=== PATIENT | female | born 1980 | race African-American/Black ===

== ENCOUNTER 2017-12-09 16:14 | Emergency (ER) | payer BC ==
[2017-12-09] MEDS ORDERED: Ondansetron 4 MG/2 ML SDV IVPUSH ONE (16:17)
[2017-12-09] MEDS ORDERED: Sodium Chloride 0.9% 1,000 ML IV ONE (16:17)
--- NOTE | 2017-12-09 16:20 | EDM.PDOC ---
ED HPI GENERAL MEDICAL PROBLEM - General Stated Complaint: STROKE Time Seen by Provider: 12/09/17 16:19 Source of Information: Reports: Patient - History of Present Illness INITIAL COMMENTS - FREE TEXT/NARRATIVE: HISTORY AND PHYSICAL: History of present illness: [Patient arrives via EMS She was working at [employer] today and found by employees to have light left- sided weakness unable to speak, no information concerning past medical history is able to be obtained for medications Patient is awake high as her open she does make some incomprehensible sounds and expressions with the right side of her face however the entire left side face upper extremity and lower extremity is flaccid Patient has had several episodes of vomiting while in the ambulance unit Unable to obtain review of systems chronic medications chronic illness or disease ] Review of systems: As per history of present illness and below otherwise all systems reviewed and negative. Past medical history: As per history of present illness and as reviewed below otherwise noncontributory. Surgical history: As per history of present illness and as reviewed below otherwise noncontributory. Social history: No reported history of drug or alcohol abuse. Family history: As per history of present illness and as reviewed below otherwise noncontributory. Physical exam: HEENT: Atraumatic, normocephalic, pupils reactive, negative for conjunctival pallor or scleral icterus, mucous membranes moist, throat clear, neck supple, nontender, trachea midline. Lungs: Clear to auscultation, breath sounds equal bilaterally, chest nontender. Heart: S1S2, regular, negative for clicks, rubs, or JVD. Abdomen: Soft, nondistended, nontender. Negative for masses or hepatosplenomegaly. Negative for costovertebral tenderness. Pelvis: Stable nontender. Genitourinary: Deferred. Rectal: Deferred. Extremities: Atraumatic, negative for cords or calf pain. Neurovascular unremarkable. Neuro: Awake, flaccid paralysis left upper and lower extremity left facial weakness aphasic Diagnostics: [CBC CMP troponin INR UA drug screen TSH EKG Chest [address] no contrast ] Therapeutics: [1 L normal saline bolus Zofran 8 mg IV TPA 9 mg IV bolus, 0.9/kg over 60 minutes: bolus provided at 1749 hrs. with trip to follow over 1 hour ] Patient had to be intubated for flight due to pulling at lines with her right hand Dr. Cui in the emergency room's excepting physician Did discuss with Dr. Pozo neurology on-call and inquire about TPA does agree with providing the TPA, ideally he would have wanted us to do a CTA and rule out arterial clot formation after TPA administration however our radiologist was gone for the day I felt transfer to ER [facility] would be better suited for getting the CTA and continued management redirecting thereafter per stroke protocol Impression: [Left sided weakness upper and lower extremity] TPA administration Intubation required for air transport and patient safety Definitive disposition and diagnosis as appropriate pending reevaluation and review of above. - Related Data Allergies Allergy/AdvReac Type Severity Reaction Status Date / Time Unable to Assess Allergy Unverified 12/09/17 16:51 Home Meds: Home Meds . [Unable to Verify Home Med List] 12/09/17 [History] ED ROS GENERAL - Review of Systems Review Of Systems: ROS reveals no pertinent complaints other than HPI. ED EXAM, GENERAL - Physical Exam Exam: See Below Course - Vital Signs Last Recorded V/S: Last Vital Signs Temp 96.3 F 12/09/17 16:14 Pulse 74 12/09/17 16:14 Resp 20 12/09/17 16:14 BP 150/122 H 12/09/17 16:14 Pulse Ox 100 12/09/17 16:14 - Orders/Labs/Meds Orders: Active Orders 24 hr Category Date Time Status EKG Documentation Completion [RC] STAT Care 12/09/17 16:17 Active Chest 1V Frontal [CR] Stat Exams 12/09/17 16:17 Taken UA W/MICROSCOPIC [URIN] Stat Lab 12/09/17 17:00 Results Alteplase [Activase] 81 mg Med 12/09/17 17:15 Active Premix Bag 1 bag IV .INFUSION Sodium Chloride 0.9% [Normal Saline] 1,000 ml Med 12/09/17 17:15 Active IV STAT Medication Orders Alteplase, Recombinant 81 mg/ (Premix) 0 mls @ 0 mls/hr IV .INFUSION MAGDI Sodium Chloride (Normal Saline) 1,000 mls @ 125 mls/hr IV STAT MAGDI Labs: Laboratory Tests 12/09/17 12/09/17 12/09/17 Range/Units 16:13 16:13 16:13 WBC 8.86 (4.0-11.0) K/uL RBC 5.12 (4.30-5.90) M/uL Hgb 14.4 (12.0-16.0) g/dL Hct 43.1 (36.0-46.0) % MCV 84.2 (80.0-98.0) fL MCH 28.1 (27.0-32.0) pg MCHC 33.4 (31.0-37.0) g/dL RDW Std Deviation 40.7 (28.0-62.0) fl RDW Coeff of Samantha 13 (11.0-15.0) % Plt Count 202 (150-400) K/uL MPV 10.60 (7.40-12.00) fL Neut % (Auto) 24.8 L (48.0-80.0) % Lymph % (Auto) 63.5 H (16.0-40.0) % [place] % (Auto) 8.5 (0.0-15.0) % Eos % (Auto) 2.7 (0.0-7.0) % Baso % (Auto) 0.5 (0.0-1.5) % Neut # (Auto) 2.2 (1.4-5.7) K/uL Lymph # (Auto) 5.6 H (0.6-2.4) K/uL [place] # (Auto) 0.8 (0.0-0.8) K/uL Eos # (Auto) 0.2 (0.0-0.7) K/uL Baso # (Auto) 0.0 (0.0-0.1) K/uL Nucleated RBC % 0.0 /100WBC Nucleated RBCs # 0 K/uL INR 0.97 Sodium 139 (136-146) mmol/L Potassium 2.9 L (3.5-5.1) mmol/L Chloride 104 (98-110) mmol/L Carbon Dioxide 24 (21-31) mmol/L BUN 9 (6.0-23.0) mg/dL Creatinine 1.0 (0.6-1.5) mg/dL Est Cr Clr Drug Dosing 55.86 mL/min Estimated GFR (MDRD) > 60.0 ml/min Glucose 124 H (60-110) mg/dL Calcium 9.3 (8.8-10.8) mg/dL Total Bilirubin 0.3 (0.1-1.5) mg/dL AST 17 (5-40) IU/L ALT 20 (8-54) IU/L Alkaline Phosphatase 63 (40-150) Creatine Kinase 186 (9-236) IU/L CK-MB (CK-2) 2.2 (0-6.6) ng/ml Troponin I < 0.10 (0.0-0.29) NG/ML Total Protein 7.5 (6.0-8.0) g/dL Albumin 3.9 (3.5-5.0) g/dL Globulin 3.6 H (2.0-3.5) g/dL Albumin/Globulin Ratio 1.1 L (1.3-2.8) TSH 3rd Generation 2.94 (0.47-5.0) uIU/mL Urine Color Urine Appearance Urine pH (5.0-8.0) Ur Specific [place] (1.001-1.035) Urine Protein (NEGATIVE) mg/dL Urine Glucose (UA) (NEGATIVE) mg/dL Urine Ketones (NEGATIVE) mg/dL Urine Occult Blood (NEGATIVE) Urine Nitrite (NEGATIVE) Urine Bilirubin (NEGATIVE) Urine Urobilinogen (<2.0) EU/dL Ur Leukocyte Esterase (NEGATIVE) Urine HCG, Qual (NEGATIVE) Urine Opiates Screen (NEGATIVE) Ur Oxycodone Screen (NEGATIVE) Urine Methadone Screen (NEGATIVE) Ur Barbiturates Screen (NEGATIVE) Ur Phencyclidine Scrn (NEGATIVE) Ur Amphetamine Screen (NEGATIVE) U Methamphetamines Scrn (NEGATIVE) U Benzodiazepines Scrn (NEGATIVE) U Cocaine Metab Screen (NEGATIVE) U Marijuana (THC) Screen (NEGATIVE) 12/09/17 12/09/17 12/09/17 Range/Units 17:00 17:00 17:00 WBC (4.0-11.0) K/uL RBC (4.30-5.90) M/uL Hgb (12.0-16.0) g/dL Hct (36.0-46.0) % MCV (80.0-98.0) fL MCH (27.0-32.0) pg MCHC (31.0-37.0) g/dL RDW Std Deviation (28.0-62.0) fl RDW Coeff of Samantha (11.0-15.0) % Plt Count (150-400) K/uL MPV (7.40-12.00) fL Neut % (Auto) (48.0-80.0) % Lymph % (Auto) (16.0-40.0) % [place] % (Auto) (0.0-15.0) % Eos % (Auto) (0.0-7.0) % Baso % (Auto) (0.0-1.5) % Neut # (Auto) (1.4-5.7) K/uL Lymph # (Auto) (0.6-2.4) K/uL [place] # (Auto) (0.0-0.8) K/uL Eos # (Auto) (0.0-0.7) K/uL Baso # (Auto) (0.0-0.1) K/uL Nucleated RBC % /100WBC Nucleated RBCs # K/uL INR Sodium (136-146) mmol/L Potassium (3.5-5.1) mmol/L Chloride (98-110) mmol/L Carbon Dioxide (21-31) mmol/L BUN (6.0-23.0) mg/dL Creatinine (0.6-1.5) mg/dL Est Cr Clr Drug Dosing mL/min Estimated GFR (MDRD) ml/min Glucose (60-110) mg/dL Calcium (8.8-10.8) mg/dL Total Bilirubin (0.1-1.5) mg/dL AST (5-40) IU/L ALT (8-54) IU/L Alkaline Phosphatase (40-150) Creatine Kinase (9-236) IU/L CK-MB (CK-2) (0-6.6) ng/ml Troponin I (0.0-0.29) NG/ML Total Protein (6.0-8.0) g/dL Albumin (3.5-5.0) g/dL Globulin (2.0-3.5) g/dL Albumin/Globulin Ratio (1.3-2.8) TSH 3rd Generation (0.47-5.0) uIU/mL Urine Color YELLOW Urine Appearance CLEAR Urine pH 7.0 (5.0-8.0) Ur Specific [place] 1.020 (1.001-1.035) Urine Protein 100 (NEGATIVE) mg/dL Urine Glucose (UA) NEGATIVE (NEGATIVE) mg/dL Urine Ketones NEGATIVE (NEGATIVE) mg/dL Urine Occult Blood NEGATIVE (NEGATIVE) Urine Nitrite NEGATIVE (NEGATIVE) Urine Bilirubin NEGATIVE (NEGATIVE) Urine Urobilinogen 0.2 (<2.0) EU/dL Ur Leukocyte Esterase NEGATIVE (NEGATIVE) Urine HCG, Qual NEGATIVE (NEGATIVE) Urine Opiates Screen NEGATIVE (NEGATIVE) Ur Oxycodone Screen NEGATIVE (NEGATIVE) Urine Methadone Screen NEGATIVE (NEGATIVE) Ur Barbiturates Screen NEGATIVE (NEGATIVE) Ur Phencyclidine Scrn NEGATIVE (NEGATIVE) Ur Amphetamine Screen NEGATIVE (NEGATIVE) U Methamphetamines Scrn NEGATIVE (NEGATIVE) U Benzodiazepines Scrn NEGATIVE (NEGATIVE) U Cocaine Metab Screen NEGATIVE (NEGATIVE) U Marijuana (THC) Screen NEGATIVE (NEGATIVE) Meds: Medications Generic Name Dose Route Start Last Admin Trade Name Freq PRN Reason Stop Dose Admin Alteplase, Recombinant 81 mg/ 0 mls @ 0 mls/hr 12/09/17 17:15 Premix IV .INFUSION MAGDI Sodium Chloride 1,000 mls @ 125 mls/hr 12/09/17 17:15 Normal Saline IV STAT MAGDI Discontinued Medications Generic Name Dose Route Start Last Admin Trade Name Freq PRN Reason Stop Dose Admin Alteplase, Recombinant Confirm 12/09/17 17:05 12/09/17 17:44 Activase Administered 12/09/17 17:06 Not Given Dose 100 mg .ROUTE .STK-MED ONE Sodium Chloride 1,000 mls @ 999 mls/hr 12/09/17 16:17 12/09/17 16:45 Normal Saline IV 12/09/17 17:17 999 mls/hr STAT ONE Administration Ondansetron HCl 8 mg 12/09/17 16:17 12/09/17 16:45 Zofran IVPUSH 12/09/17 16:18 8 mg ONETIME ONE Administration Departure - Departure Time of Disposition: 17:51 Disposition: DC/Tfer to Other 70 Condition: Poor Clinical Impression: Limb weakness, Aphasia - Discharge Information Referrals: PCP,None [Primary Care Provider] - - My Orders Last 24 Hours: My Active Orders 12/09/17 16:17 EKG Documentation Completion [RC] STAT Chest 1V Frontal [CR] Stat 12/09/17 17:00 UA W/MICROSCOPIC [URIN] Stat 12/09/17 17:15 Alteplase [Activase] 81 mg Premix Bag 1 bag IV .INFUSION Sodium Chloride 0.9% [Normal Saline] 1,000 ml IV STAT - Assessment/Plan Last 24 Hours: My Active Orders 12/09/17 16:17 EKG Documentation Completion [RC] STAT Chest 1V Frontal [CR] Stat 12/09/17 17:00 UA W/MICROSCOPIC [URIN] Stat 12/09/17 17:15 Alteplase [Activase] 81 mg Premix Bag 1 bag IV .INFUSION Sodium Chloride 0.9% [Normal Saline] 1,000 ml IV STAT
--- NOTE | 2017-12-09 16:45 | CT ---
EXAMINATION: Non contrast CT head. Coronal and sagittal reformats. HISTORY: Pain FINDINGS: No evidence of intra or extra axial hemorrhage, mass, midline shift, hydrocephalus or edema. There i s however notable motion artifact securing fine detail. Cavum septum pellucidum et vergae. No definite loss of claire-white matter differentiation however this is not well characterized in the r ight cerebral convexity due to motion. No overtly abnormal calcifications. Paranasal sinuses and mast oid air cells are grossly clear. IMPRESSION: 1. No evidence of an intracranial hemorrhage however study is limited due to extensive motion. Above findings were called to the ER at 4:42 PM.
[2017-12-09 16:53] LABS: CHLORIDE,CL 104 mmol/L (98-110); SODIUM,NA 139 mmol/L (136-146)
[2017-12-09] MEDS ORDERED: Alteplase 81 MG in Premix Bag 1 BAG IV SCH (17:15)
[2017-12-09] MEDS ORDERED: Sodium Chloride 0.9% 1,000 ML IV SCH (17:15)
--- NOTE | 2017-12-10 09:58 | CR ---
EXAM DATE: 12/09/17 PATIENT'S AGE: 37 Patient: TYESHA GIBBS Facility: [place], [place] Site . Site : 1980 Study: XRay Chest [id number]/27/2018 5:47:57 PM Ordering Physician: Doctor Hudson Final Report: INDICATION: post intubation TECHNIQUE: Chest 1 view COMPARISON: None FINDINGS/IMPRESSION: Cardiovascular and mediastinum: Heart size and vasculature are normal in caliber and appearance. Mediastinum is within normal limits. Lungs and pleural space: No focal consolidation. No sign of pleural effusion. No pneumothorax. Bones and soft tissues: No significant findings. Other: Endotracheal tube in place with the distal tip 3 cm above the mar[place]. Partially imaged feeding tube crossing left hemidiaphragm Dictated by Karel Begum MD @ 12/09/2017 6:09:17 PM Dictated by: Karel Begum MD @ 12/09/2017 18:09:40 (Electronic Signature) Report Signed by Proxy. [email or web address]
== END 2017-12-09 18:20 | disposition other institution (70) ==
LOC: MW.ED 16:14
DX: R47.01 Aphasia (principal); R29.898 Other symptoms and signs involving the musculoskeletal system
CPT/HCPCS: 36415; 43753; 70450; 71045; 80053; 80305; 81001; 81025; 82550; 82553; 84443; 84484; 85025; 85610; 93005; 96365; 96374; 99291; 99292; J2405; J2997; J7040; 99284